=== PATIENT | female | born 1945 | race Caucasian/White ===

== ENCOUNTER → 2017-04-21 | Outpatient (CLI) | payer MEDICARE ==
[~2017-04-21] MED LIST: ALLERGY RELIEF10 M1 PO; CALTRATE 600 W-1 TAB PO; EVISTA60 M1 PO; FISH OIL500 M1 PO; MULTI-DAY1 TAB PO
--- NOTE | ~2017-04-21 | BD1 ---
[facility] A Service of [facility] RADIOLOGY TEXT RESULTS PATIENT: CIPRIANO PERRY LOCATION: [facility] : 45 UNIT #: [id number] AGE: [address]: YASMIN SMYTH APRN SEX: F ORDER DR: [id number] [address] [address] [id number] O MR#: [id number] Acc #: [id number] NAME: CIPRIANO PERRY : 1945 SEX: F STUDY DATE/TIME: 04/21/2017 10:50 UNIT: [facility] ROOM: STUDY DESCRIPTION: BD Dexa Bone Dens 1+ Site Attending Physician: Yasmin Smyth M.D. Referring Physician: Yasmin Smyth M.D. Ordering Physician: Yasmin Smyth M.D. Primary Care Physician: Renetta PaulPAnniaRLilia MEDICAL IMAGING REPORT This report is preliminary unless electronic signature is present. EXAM DXA scan, 04/21/2017. HISTORY Status post menopause with no hormone replacement therapy. Osteopenia. Arthritis. Smoking history for 5 years. FINDINGS Bone mineral density in the lumbar spine from L1-L4 was 1.189 g/cm2 which is 0.1 standard deviations above the mean when compared to the young adult reference population which is within the range of normal. This is 1.8 standard deviations above the mean when compared to the age-matched population. Bone mineral density in the left femoral neck was 0.831 g/cm2 which is 1.5 standard deviations below the mean when compared to the young adult reference population which is characteristic of osteopenia. This is 0.3 standard deviations above the mean when compared to the age-matched population. Bone mineral density in the right femoral neck was 0.88 g/cm2 which is 1.1 standard deviations below the mean when compared to the young adult reference population which is characteristic of osteopenia. This is 0.6 standard deviations above the mean when compared to the age-matched population. IMPRESSION Bone mineral density in the lumbar spine within the range of normal and within the hips bilaterally characteristic of osteopenia. STS. [facility] A Service of [facility] & [facility] RADIOLOGY TEXT RESULTS PATIENT: CIPRIANO PERRY LOCATION: [facility] : 45 UNIT #: [id number] AGE: [address]: YASMIN SMYTH APRN SEX: F ORDER DR: Dictated by... Tony Harris M.D. THIS IS AN ELECTRONICALLY VERIFIED REPORT Tony Harris M.D. at 04/22/2017 7:17 AM GRACIE/seferino TD: 04/21/2017 16:43 JOB #: [id number] MEDICAL IMAGING REPORT Page 1 of 1
--- NOTE | ~2017-04-21 | MY30 ---
[facility] A Service of [facility] RADIOLOGY TEXT RESULTS PATIENT: CIPRIANO PERRY LOCATION: [facility] : 45 UNIT #: [id number] AGE: [address]: YASMIN SMYTH APRN SEX: F ORDER DR: [id number] [address] [address] [id number] O MR#: [id number] Acc #: [id number] NAME: CIPRIANO PERRY : 1945 SEX: F STUDY DATE/TIME: 04/21/2017 11:06 UNIT: [facility] ROOM: STUDY DESCRIPTION: MY SCREEN JULIANNE BILAT DIGITAL Attending Physician: Yasmin Smyth M.D. Referring Physician: Yasmin Smyth M.D. Ordering Physician: Yasmin Smyth M.D. Primary Care Physician: Renetta PaulPAnniaRLilia MEDICAL IMAGING REPORT This report is preliminary unless electronic signature is present. EXAM Bilateral digital screening mammogram CAD. COMPARISON April 16, 2016, December 16, 2014, January 25, 2013, November 29, 2009, June 15, 2008, October 12, 2003. INDICATION Breast cancer screening. 71-year-old asymptomatic female. No personal or family history of breast cancer. FINDINGS There are scattered fibroglandular densities. Multiple skin lesions are marked in the left breast. Benign arterial calcifications are seen in both breast. There are no suspicious findings in either breast. IMPRESSION No mammographic evidence of malignancy. Continued annual screening mammography and clinical breast exam are recommended. Patients over the age of 40 are entered into a reminder system with target due date for the next mammogram. A result letter will also be sent to the patient. BIRADS: 2 Benign finding. Dictated by... Shamar Silva M.D. THIS IS AN ELECTRONICALLY VERIFIED REPORT [facility] A Service of [facility] RADIOLOGY TEXT RESULTS PATIENT: CIPRIANO PERRY LOCATION: [facility] : 45 UNIT #: [id number] AGE: [address]: YASMIN SMYTH APRN SEX: F ORDER DR: Shamar Silva M.D. at 04/29/2017 1:32 AM AZEB/seferino TD: 04/21/2017 20:56 JOB #: [id number] MEDICAL IMAGING REPORT Page 1 of 1
== END | disposition home or self-care (01) ==
LOC: SMAM 10:30
DX: Z12.31 Encounter for screening mammogram for malignant neoplasm of breast (principal); M85.80 Other specified disorders of bone density and structure, unspecified site; Z78.0 Asymptomatic menopausal state
CPT/HCPCS: 77080; G0202